=== PATIENT | female | born 1985 | race African-American/Black ===

== ENCOUNTER 2020-03-11 15:51 | Emergency (ER) | payer SELFPAY ==
[~2020-03-11] VITALS: Ht 170.2 cm; Wt 86.0 kg
[2020-03-11 15:59] VITALS: BP 135/87
[2020-03-11] MEDS ORDERED: PREDNISONE 20MG TABLET PO ONE (18:00)
[2020-03-11] MEDS ORDERED: DIPHENHYDRAMINE 25MG CAPSULE PO ONE (18:00)
[2020-03-11] MEDS ORDERED: FAMOTIDINE 20MG TABLET PO ONE (18:00)
== END 2020-03-11 19:53 | disposition home or self-care (01) ==
LOC: ER 15:51
DX: T78.40XA Allergy, unspecified, initial encounter (principal); X58.XXXA Exposure to other specified factors, initial encounter
CPT/HCPCS: 93005; 99284; J7512; Q0163